=== PATIENT | female | born 1975 | race Caucasian/White ===

== ENCOUNTER 2018-09-10 15:36 | Emergency (ER) | payer BC ==
[~2018-09-10] VITALS: Ht 167.6 cm; Wt 108.0 kg
[~2018-09-10 15:36] MED LIST: ADDERALL 30 MG30 MG; CODEINE-GUAIFE120 ML PO; GENTAMICIN SU3 MG/ML OPHTHALMIC; GLYBURIDE 5 MG T5 MG; HYDROCODON-ACE1 EAC7 PO; IBUPROFEN 800800 MG PO; JANUVIA100 MG; PRINIVIL20 MG; TESSALON PERLE100 MG PO; TOBREX5 ML OPHTHALMIC; TOUJEO SOL300 UNIT/1; ZOCOR5 MG
[2018-09-10 15:46] VITALS: BP 228/93
[2018-09-10] MEDS ORDERED: NORCO 5-325 TA1 EAC1 PO (16:33)
== END 2018-09-10 16:41 | disposition home or self-care (01) ==
LOC: M.ERS 15:36
DX: S93.492A Sprain of other ligament of left ankle, initial encounter (principal); E11.9 Type 2 diabetes mellitus without complications; I10 Essential (primary) hypertension; F17.210 Nicotine dependence, cigarettes, uncomplicated; Z98.890 Other specified postprocedural states; Z88.6 Allergy status to analgesic agent; Z88.8 Allergy status to other drugs, medicaments and biological substances; Z79.4 Long term (current) use of insulin; X50.1XXA Overexertion from prolonged static or awkward postures, initial encounter; Y93.39 Activity, other involving climbing, rappelling and jumping off; Y92.89 Other specified places as the place of occurrence of the external cause; Y99.8 Other external cause status